=== PATIENT | female | born 1950 | race Caucasian/White ===

== ENCOUNTER → 2023-05-06 20:24 | Outpatient (REF) | payer MEDICARE, BC, SELFPAY | LOC: MRI 3T 20:24 | PROVIDERS: ATTENDING PHYSICIAN Otolaryngology; FAMILY PHYSICIAN Family Medicine | DX: H90.A21 Sensorineural hearing loss, unilateral, right ear, with restricted hearing on the contralateral side (principal); R42 Dizziness and giddiness | CPT/HCPCS: 70553; A9575 ==

== ENCOUNTER 2023-06-13 12:05 | Emergency (ER) | payer MEDICARE, BC, SELFPAY ==
[2023-06-13 12:07] VITALS: BP 121/62
--- NOTE | 2023-06-13 13:42 | ED.GENMED ---
History of Present Illness
General
Chief Complaint: Musculo-Skeletal Complaint
Source: patient and family
Exam Limitations: none
Time Seen by Provider: 06/13/23 13:26
Nursing documentation reviewed up to this point in time: agreed with
Travel History
Have you had any contact with someone who has COVID-19?: No
Do you have any symptoms of coronavirus? Fever > 100 degrees, chills, cough, shortness of breath, sore throat, loss of taste or smell, muscle aches, or headache?: No
History of Present Illness
History of Present Illness:
Patient is a 73-year-old female who presents to the ER for evaluation. Yesterday patient reports a full following cabinet fell on her left side. Initially hit her left abdomen but then hit her left back. She complains of pain to the left
abdominal region and left back. It is worse when she moves. She denies any headache she is on blood thinners. She denies any neck pain. She does complain of a bruise to left lateral leg but has been able to bear weight. Her primary complaint is
left abdominal and left back pain. She is not on blood thinners.
Past History
Past History
ED Past Medical History: None
ED Past Surgical History: None
Patient has exhibited threatening behavior?: No
Social History
Personal:
Living: with family
Review of Systems
Review of Systems
Allergies reviewed?: Yes
All Other Systems: ROS reviewed and negative except as documented in HPI and ROS
Constitutional: Reports no symptoms
Respiratory: Denies trouble breathing
Cardiac: Reports no symptoms
ABD/GI: Reports abdominal pain; Denies nausea, vomiting or diarrhea
: Reports no symptoms
Musculoskeletal: Reports back pain (left back pain, left thigh bruise /soreness )
Skin: Reports no symptoms
Hematologic/Lymphatic: Reports no symptoms
Psychiatric: Reports no symptoms
Phy Exam
General Physical Exam
General Presentation: no apparent distress
General age: appears stated age
General Skin: warm and dry
General Habitus: normal
General Mental: alert
General Hydration: appears well hydrated
Cardiovascular Exam
Cardiovascular Exam: regular rate/rhythm, no murmur and normal peripheral pulses
Pulmonary Exam
Pulmonary Exam: lungs clear, no respiratory distress and other (No rib tenderness)
Gastrointestinal Exam
Gastrointestinal Exam: non tender, soft and other (Normal inspection to left abdomen however tender left side abd lateral to umbilicus no ecchymosis )
Neurological Exam
Neurological Exam: alert and oriented x3
Musculoskeletal Exam
Musculoskeletal Exam: other (Superficial abrasion to left lateral lumbar tender to left lateral lumbar region no rib tenderness no obvious centimeters cervical or thoracic tenderness small left lateral thigh bruise minimal soft tissue tenderness)
Skin Exam
Skin Exam: normal color and warm/dry
Psychiatric Exam
Psychiatric Exam: normal mood/affect
Course
Orders/Labs/Results
Orders:
Orders
06/13/23 13:54
UA Reflex to Culture [Urinalysis Reflex To Culture] Urgent
Date Specimen was Collected: 06/13/23
Time Specimen was Collected: 13:51
Urine Microscopic Reflex Cult Urgent
06/13/23 14:34
CT Abd/Pel (IV only)-DH only Urgent
Comment:
Reason For Exam: trauma
IV Insert/Care/Rem.- Treatment PRN
0.9% Sodium Chloride 1000 ml [Nss] 1,000 ml IV BOLUS
06/13/23 14:42
Complete Blood Count/With Diff Urgent
Comprehensive Metabolic Panel Urgent
Abnormal Lab Results
06/13/23 06/13/23
13:54 14:42
MPV 10.5 H fL
(7.4-10.4)
Sodium 133 L mmol/L
(135-145)
Glucose 101 H mg/dl
(70-99)
Leukocyte Esterase Rfl Trace A
(Negative)
Urine Bacteria (Reflex) Few A
(Negative)
06/13/23 14:42
06/13/23 14:42
Vital Signs
Initial and Last Documented VS:
Initial Vital Signs
Temp Pulse Resp BP Pulse Ox
98.0 F 78 16 121/62 98
06/13/23 12:07 06/13/23 12:07 06/13/23 12:07 06/13/23 12:07 06/13/23 12:07
Last Documented Vital Signs
Temp Pulse Resp BP Pulse Ox
98.0 F 68 18 122/62 97
06/13/23 12:07 06/13/23 17:13 06/13/23 17:13 06/13/23 17:13 06/13/23 17:13
MDM/Problems Addressed
Differential Diagnosis Includes:
Not limited to contusion, intra-abdominal bleed/trauma
MDM/Problems Addressed:
CAT scan shows nondisplaced fracture of the left lateral 10th rib no other acute posttraumatic abnormality in the abdomen or pelvis. no blood in urine. Patient looks well. Patient nontoxic has allergies to a lot of medication. She has been
tolerating tramadol in the past however does not have any more home will DC on tramadol discussed deep breathing and follow-up closely with family doctor
*Radiology
Radiology exam reviewed: radiology read reviewed
*Pulse Oximetry
Patient hypoxic: no
*Critical Care Note
Total Time (30-74mins, 75-104mins- exclusive of procedures): Not Applicable
ED Attending Note
-
Portions of this chart may have been created with voice recognition software.� Occasional wrong word or��sound alike� substitutions may have occurred due to the inherent limitations of voice recognition software.
Discharge Plan
Departure
Patient Disposition: Home (Routine Discharge)
Date of Disposition: 06/13/23
Time of Disposition: 17:30
Patient with high blood pressure during this ER visit?: No
Condition: Fair
Covid-19: Not Applicable
Discharge Problem:
Closed rib fracture
Instructions: Rib Fracture (DC)
Prescriptions:
New
tramadol 50 mg tablet
50 mg PO Q8H PRN (Reason: Pain) Qty: 10 0RF
No Action
atorvastatin 10 MG tablet
10 mg PO DAILY
aspirin 325 MG tablet
325 mg PO DAILY
esomeprazole magnesium [Nexium] 40 MG capsule,delayed release(DR/EC)
20 mg PO DAILY
sennosides-docusate sodium [Stool Softener-Stimulant Laxat] 1 EACH tablet
1 ea PO BID
Vagifem Supp.Vag
1 1 applic VAG .2 TIMES A WEEK
acetaminophen 325 MG tablet
650 mg PO Q4H Qty: 0 0RF
Rx Instructions:
Take two 325mg tabs every 4 hours when awake
tramadol 50 MG tablet
50 mg PO Q4H PRN (Reason: pain) Qty: 60 0RF
aspirin 325 MG tablet,delayed release (DR/EC)
325 mg PO DAILY Qty: 30 0RF
docusate sodium 100 MG capsule
100 mg PO BID Qty: 10 0RF
Rx Instructions:
1 tab twice a day until regular bowel movements
naproxen 500 MG tablet
500 mg PO BID Qty: 0 0RF
tramadol [Ultram] 50 MG tablet
50 mg PO Q6HPRN PRN (Reason: severe pain) Qty: 20 0RF
Referrals:
Bria Rosenbaum DO [Family Provider] -
Activity Restrictions/Additional Instructions:
As discussed you have a nondisplaced fracture of the lateral left 10th rib
Take tramadol every 8 hours as needed. This medication was sent to your pharmacy this medication will cause drowsiness no driving or drinking alcohol on medication. You may alternate between Tylenol as well 650 mg every 4-6 hours. Do deep
breathing exercises every hour. Follow-up with your family doctor the next several days and return if any worsening of symptoms.
Interventions
Interventions:
*Risk Screen - Suicide Last Done: 06/13/23 13:30
*General Assessment Last Done: 06/13/23 13:30
*Neglect/Abuse Screening Last Done: 06/13/23 13:30
*ED COVID-19 Vaccine History Last Done: 06/13/23 12:07
ED-Musculoskeletal Assessment Last Done: 06/13/23 13:33
[2023-06-13 14:06] LABS: Urine Albumin Negative (Neg - Trace); Urine Bilirubin Negative (Negative); Urine Character Slightly Cloudy (Clear); Urine Color Yellow; Urine Glucose Negative (Negative); Urine Ketone Negative (Negative); Urine Leukocyte Trace (Negative); Urine Nitrite Negative (Negative); Urine Occult Blood Negative (Negative); Urine Specific Gravity 1.015 (<1.030); Urine Urobilinogen 1+ (Neg - 1+)
[2023-06-13 14:18] LABS: Urine Bacteria Few (Negative); Urine Mucus Few; Urine Red Blood Cell 0-2 /HPF (0-2); Urine White Cell 0-2 /HPF (0-5)
[2023-06-13] MEDS: NSS 1000 IV (14:43)
[2023-06-13 15:00] LABS: % Basophils 0.6 % (0-2); % Eosinophils 0.6 % (0-6); % Immature Granulocytes 0.3 % (0-0.5); % Lymphocytes 22.2 % (20.5-51.1); % Monocytes 8.3 % (1.7-9.3); Absolute Lymphocytes 1.5 10^3/uL (1.2-3.4); Absolute Monocytes 0.6 10^3/uL (0.1-0.6); Absolute Neutrophils 4.7 10^3/uL (1.4-6.5); Hematocrit 37.5 % (37.0-47.0); Hemoglobin 12.8 g/dL (12.0-16.0); Mean Corp Hgb Conc. 34.1 g/dL (33.0-37.0); Mean Corpuscular Hgb 29.8 pg (27.0-31.0); Mean Corpuscular Volume 87.4 fL (81.0-99.0); Mean Platelet Volume 10.5 fL (7.4-10.4); Nucleated Red Blood Cells % 0 %; Platelet Count 265 10^3/uL (130-400); Red Blood Cell Count 4.29 10^6/uL (4.20-5.40); White Blood Cell Count 6.9 10^3/uL (4.8-10.8)
[2023-06-13 15:17] LABS: ALT (SGPT) 18 U/L (0-35); AST (SGOT) 24 U/L (14-36); Albumin 4.4 g/dl (3.5-5.0); Alkaline Phosphatase 87 U/L (38-126); Blood Urea Nitrogen 14 mg/dl (7-17); Calcium 9.4 mg/dl (8.4-10.2); Carbon Dioxide 25 mmol/L (22-30); Chloride 99 mmol/L (98-107); Glucose 101 mg/dl (70-99); Sodium 133 mmol/L (135-145); Total Bilirubin 0.5 mg/dl (0.2-1.3); Total Protein 7.4 g/dl (6.3-8.2); eGFR > 60.00
[2023-06-13 17:13] VITALS: BP 122/62
[2023-06-13] MEDS: ULTRAM 50 MG PO (17:38)
== END 2023-06-13 17:45 | disposition home or self-care (01) ==
LOC: EMR 12:05
PROVIDERS: Nurse Practitioner; EMERGENCY PHYSICIAN Emergency Medicine; FAMILY PHYSICIAN Family Medicine
DX: S22.32XA Fracture of one rib, left side, initial encounter for closed fracture (principal); W22.8XXA Striking against or struck by other objects, initial encounter
CPT/HCPCS: 99285; 96360; 74177; 80053; 81003; 81015; 85025; Q9967

== ENCOUNTER → 2024-02-05 06:40 | Day surgery (SDC) | payer MEDICARE, BC, SELFPAY | LOC: GI 06:40 | PROVIDERS: ATTENDING PHYSICIAN Internal Medicine Gastroenterology; FAMILY PHYSICIAN Family Medicine | DX: R12 Heartburn (principal); R13.10 Dysphagia, unspecified; K31.89 Other diseases of stomach and duodenum | CPT/HCPCS: 43239; 88305; 88342 ==